=== PATIENT | female | born 1940 | race Caucasian/White ===

== ENCOUNTER 2016-10-18 21:24 | Observation (INO) | payer MEDICARE ==
[~2016-10-18] VITALS: Ht 165.1 cm; Wt 88.5 kg
--- NOTE | ~2016-10-18 | HEMODYNAMI ---
PATIENT:BEV JAMES MEDICAL RECORD: [id number] : 44 [id number] ADMISSION DATE: 10/18/16 Generatedon:10/19/201612:58 Patient name: BEV JAMES Patient #: [id number] SSN: : [id number] Date of study: 10/19/2016 Page: Of Hemodynamic Procedure Report Patient Data Patient Demographics Procedure consent was obtained First Name: BEV Gender: Female Last Name: JACOB : 1940 [facility] Initial: D Age: 76 year(s) Patient #: [id number] Race: Additional ID: [id number] Contact details Address: [place] [address] State: [place] City: [place] Zip code: [address] Past Medical History Allergies Allergen Reaction Date Comments Reported Aspirin 10/19/2016 Admission Admission Data Admission Date: 10/18/2016 Admission Time: 21:24 Room #: [facility] Procedure Procedure Types Cath Procedure Diagnostic Procedure [facility] w/Coronaries PCI Procedure Coronary Stent Initial Miscellaneous Procedures Moderate Sedation up to 30 minutes Procedure Description Procedure Date Procedure Date: 10/19/2016 Procedure Start Time: 12:36 Procedure End Time: 12:58 Procedure Staff Name Function Mike Bradford RT Scrub Yissel Boswell RN Nurse Lexy Encinas RT Monitor Kp Varela MD Performing Physician Procedure Data Cath Procedure Fluoroscopy Diagnostic fluoroscopy Total fluoroscopy Time: 3.5 time: 3.5 min min Diagnostic fluoroscopy Total fluoroscopy dose: 756 dose: 756 mGy mGy Contrast Material Contrast Material Type Amount (ml) Isovue 300 106 Entry Location Entry Primary Successful Side Size Upsize Upsize Entry Closure Succes sful Closure Location (Fr) 1 (Fr) 2 (Fr) Remarks Device Remarks Femoral Right 5 Fr 6 Fr Exoseal artery Short Estimated blood loss: 10 ml Diagnostic catheters Device Type Used For End Catheter Placement Cordis 5Fr JL 4.0 Left Coronary Catheter (MP) Angiography Cordis 5Fr 3DRC Catheter Right Coronary (MP) Angiography Cordis 5Fr Pigtail LV Angiography Catheter (MP) Procedure Complications No complications Procedure Medications Medication Administration Route Dosage Versed I.V. 1 mg Fentanyl I.V. 50 mcg Oxygen NC 3 l/min Lidocaine 2% added to field 20 Heparin Flush Bag added to field 2 bags (1000units/500ml NS) 0.9% NaCl I.V. 100 ml/hr Heparin Bolus I.V. 4000 units Integrilin (Bolus I.V. 7.9 ml 2mg/ml) Versed I.V. 1 mg Fentanyl I.V. 50 mcg Hemodynamics Rest Heart Rate: 70 (bpm) Pressure Samples Time Site Value (mmHg) Purpose Heart Use Rate(bpm) 12:42 LV 124/13,32 EDP 69 Gradients Valve Time Site Site Mean SEP/DFP Peak To Heart Use 1 2 (mmHg) (sec/min) Peak Rate (mmHg) (bpm) Aortic 12:43 LV AO 69 Snapshots Pre Cath Intra NCS Post Cath Vital Signs Time Heart Resp SPO2 NIBP (mmHg) Rhythm Pain Sedation Rate (ipm) (%) Status Level (bpm) 12:25:01 70 20 100 147/82(116) NSR 0 (11) 10(A) , No pain 12:29:27 67 17 92 130/69(109) NSR 0 (11) 10(A) , No pain 12:33:43 65 19 94 130/71(96) NSR 0 (11) 9(A) , No pain 12:38:03 64 23 95 116/62(101) NSR 0 (11) 9(A) , No pain 12:42:19 66 16 95 117/59(82) NSR 0 (11) 9(A) , No pain 12:46:35 65 14 95 118/65(84) NSR 0 (11) 9(A) , No pain 12:51:30 64 17 95 112/68(84) NSR 0 (11) 9(A) , No pain 12:55:44 62 21 90 108/65(76) NSR 0 (11) 10(A) , No pain Medications Time Medication Route Dose Verified Delivered Reason Notes Effectiveness by by 12:25:01 Oxygen NC 3 l/min Yissel Dey used for Elbert Elbert coding file clerk RN 12:25:21 Lidocaine 2% added 20ml Yissel Yissel used for to vial Elbert Elbert procedure field RN RN 12:25:35 Heparin Flush added 2 bags Yissel Yissel used for Bag to Elbert Elbert procedure (1000units/500ml field RN RN NS) 12:25:55 0.9% NaCl I.V. 100ml/hr Yissel Yissel used for Elbert Elbert coding file clerk RN 12:29:12 Versed I.V. 1 mg Yissel Yissel for Elbert Elbert sedation RN RN 12:29:18 Fentanyl I.V. 50 mcg Yissel Yissel for Elbert Elbert sedation RN RN 12:35:43 Versed I.V. 1 mg Yissel Yissel for Elbert Elbert sedation RN RN 12:35:54 Fentanyl I.V. 50 mcg Yissel Yissel for Elbert Elbert sedation RN RN 12:46:18 Heparin Bolus I.V. 4000 Kp Yissel Per verified units [facility] physician with dr. MD LANDAVERDE durham 12:46:35 Integrilin I.V. 7.9 ml Kp Yissel Per verified (Bolus 2mg/ml) [facility] physician with dr. MD LANDAVERDE durham, 2.1ml wasted Procedure Log Time Note 12:00:24 Lexy Counts RT(R) sent for patient. Start room use. 12:12:29 Time tracking: Regular hours 12:12:33 Plan of Care:Hemodynamics will remain stable., Cardiac rhythm will remain stable., Comfort level will be maintained., Respiratory function will remain adequate., Patient/ family verbilizes understanding of procedure., Procedure tolerated without complication., Recovers from procedure without complications.. 12:12:38 Patient received from Med II to CCL 2 Alert and oriented. Tansferred to table in Supine position. 12:12:39 Warm blankets applied, and jesus hugger turned on for patient comfort. 12:12:39 Correct patient and procedure confirmed by team. 12:12:41 Signed procedure consent form obtained from patient. 12:12:42 ECG and BP/O2 sat monitors applied to patient. 12:17:33 Full Disclosure recording started 12:22:42 Vital chart was started 12:22:48 Rhythm: sinus rhythm 12:22:55 H&P Date Dictated: 10/19/2016 Within 30 days and on chart.. 12:23:26 Pre-procedure instructions explained to patient. 12:23:26 Pre-op teaching completed and patient verbalized understanding. 12:23:28 Family in patients room. 12:23:35 Patient NPO since Midnight. 12:23:44 Patient allergic to Aspirin 12:23:48 Is the patient allergic to Iodine/contrast media? No. 12:23:49 Is patient on blood thinner?No 12:23:52 Patient diabetic? No. 12:23:57 Previous problem with sedation/anesthesia? No ? 12:23:57 Snore? Yes 12:23:59 Sleep apnea? No 12:24:00 Deviated septum? No 12:24:00 Opens mouth fully? Yes 12:24:01 Sticks out tongue? Yes 12:24:03 Airway obstruction? No ? 12:24:05 Dentures? Yes In 12:24:11 Pre procedure: right dorsailis pedis pulse 2+ Normal; easily identifiable; not easily obliterated 12:24:12 Patient pain scale 0/10 ?. 12:24:30 IV patent on arrival in right wrist with 0.9% NaCl at [facility]. 12:25:01 Oxygen 3 l/min NC was administered by Yissel Boswell RN; used for procedure; 12:25:21 Lidocaine 2% 20ml vial added to field was administered by Yissel Boswell RN; used for procedure; 12:25:35 Heparin Flush Bag (1000units/500ml NS) 2 bags added to field was administered by Yissel Boswell RN; used for procedure; 12:25:51 Lab results completed and on chart. 12:25:55 0.9% NaCl 100ml/hr I.V. was administered by Yissel Boswell RN; used for procedure; 12:25:56 Right groin area was prepped with chlora-prep and draped in sterile fashion 12:25:56 Alarms reviewed by R. N. 12:25:57 Sharps counted by scrub and verified by R.N. 12:25:59 Use device set Femoral Dx 12:26:00 Acist Syringe opened to sterile field. 12:26:00 Bag Decanter opened to sterile field. 12:26:01 Medline Cath Pack opened to sterile field. 12:26:01 Terumo 5Fr Wind Gap Sheath opened to sterile field. 12:26:02 St Fabricio 260cm J .035 wire opened to sterile field. 12:26:03 Acist Hand Control opened to sterile field. 12:26:03 Acist Manifold opened to sterile field. 12:26:04 Diagnostic Infinity 5Fr Multipack catheter opened to sterile field. 12:26:05 Tegaderm 4 x 4 opened to sterile field. 12::36 Baseline sample Acquired. 12::37 Final Timeout: patient, procedure, and site verified with staff and physician. All members of the team are in agreement. 12::39 Right groin site verified by team. 12::56 Physical assessment completed. ASA score P 2 - A patient with mild systemic disease as per Kp Varela MD. 12:28:59 Sedation plan: IV Moderate Sedation Versed, Fentanyl 12:29:12 Versed 1 mg I.V. was administered by Yissel Boswell RN; for sedation; 12:29:18 Fentanyl 50 mcg I.V. was administered by Yissel Boswell RN; for sedation; 12:34:04 Zero performed for pressure channel P1 12:35:43 Versed 1 mg I.V. was administered by Yissel Boswell RN; for sedation; 12:35:47 Procedure started. 12:35:54 Fentanyl 50 mcg I.V. was administered by Yissel Boswell RN; for sedation; 12:36:34 Local anesthetic to right femoral artery with Lidocaine 2% by Kp Varela MD.INITIAL ACCESS ONLY 12:36:48 A 5 Fr sheath was inserted into the Right Femoral artery 12:37:22 A Cordis 5Fr JL 4.0 Catheter (MP) was advanced over the wire and used for Left Coronary Angiography. 12:39:35 Catheter removed. 12:39:43 A Cordis 5Fr 3DRC Catheter (MP) was advanced over the wire and used for Right Coronary Angiography. 12:41:09 Catheter removed. 12:41:20 A Cordis 5Fr Pigtail Catheter (MP) was advanced over the wire and used for LV Angiography. 12:42:47 LV gram done using VALDIVIA 12:42:48 LV hemodynamics recorded. 12:42:52 Injector settings: Ml/sec: 10, Volume: 20, 12:43:03 EF : 40 % 12:43:26 Catheter removed. 12:43:54 Merit BasixCompak Inflation Kit opened to sterile field. 12:43:55 Terumo 6Fr Wind Gap Sheath opened to sterile field. 12:43:55 Villarreal [place] 300cm 0.014 guide wire opened to sterile field. 12:43:56 Medtronic Launcher 6Fr EBU 3.5 guide catheter opened to sterile field. 12:44:04 Sheath upsized to a 6 Fr Short. 12:45:48 6 Fr EBU 3.5 guide catheter was inserted over the wire 12:46:18 Heparin Bolus 4000 units I.V. was administered by Yissel Boswell RN; Per physician; verified with dr. flores 12:46:35 Integrilin (Bolus 2mg/ml) 7.9 ml I.V. was administered by Yissel Boswell RN; Per physician; verified with dr. flores, 2.1ml wasted 12:48:31 [place] wire advanced. 12:50:37 Inflation Number: 1 A Mcdowell OTW 3.0 x 15 stent was prepped and advanced across the Prox CX. The stent was deployed at 14 KAYLENE for 0:29 (min:sec). 12:51:05 Stent catheter was removed intact over wire. 12:51:05 Wire removed. 12:51:06 Guide catheter removed. 12:51:23 Cordis 6Fr Exoseal opened to sterile field. 12:51:35 Sheath removed intact; hemostasis achieved with Exoseal to the Right Femoral artery. 12:51:37 Procedure ended.(Physican Out) 12:53:03 Fluoroscopy time 03.50 minutes. 12:53:07 Fluoroscopy dose: 756 mGy 12:53:07 Flurop Dose total: 756 12:53:22 Contrast amount:Isovue 300 106ml. 12:53:23 Sharps counted by scrub and verified by R.N. 12:53:25 Insertion/operative site no bleeding no hematoma. 12:53:27 Post-op/insertion site Right Femoral artery dressed using a 4 x 4 and Tegaderm. 12:53:31 Post right femoral artery:stable, clean and dry 12:53:32 Post Procedure Pulses reassessed and unchanged 12:53:36 Post-procedure physical assessment completed. ASA score P 2 - A patient with mild systemic disease as per Kp Varela MD. 12:53:38 Post procedure rhythm: unchanged. 12:53:41 Estimated blood loss: 10 ml 12:53:42 Post procedure instruction explained to patient.Patient verbalizes understanding. 12:53:43 Patient needs reinforcement of post procedure teaching. 12:54:22 Procedure type changed to Cath procedure, Diagnostic procedure, LHC, LHC w/Coronaries, PCI procedure, Coronary Stent Initial, Miscellaneous Procedures, Moderate Sedation up to 30 minutes 12:54:28 Procedure Complication : No complications 12:54:31 See physician's report for complete and final results. 12:54:58 Procedure and supply charges have been captured, reviewed, submitted and are correct. 12:57:52 Vital chart was stopped 12:57:54 Report given to PCU. 12:58:05 Patient transfered to PCU with Bed. 12:58:12 Procedure ended. 12:58:12 Full Disclosure recording stopped 12:58:16 End room use (Document Last) Intervention Summary Intervention Notes Time ActionType Lesion and Equipment Action# Pressure Duration Attributes Used 12:50:37 Place stent Prox CX Mcdowell OTW 1 14 00:29 3.0 x 15 stent Device Usage Item Name Manufacture Quantity Catalog Hospital Part Current Minimal Lot# / Number Charge Number Stock Stock Serial# Code Acist Acist 1 [id number] 943501 283880 301107 20 Syringe Medical Systems Inc Bag Microtek 1 2002S 356286 36940 005605 5 Decanter Medical Inc. Medline Cardinal 1 [id number] 197031 18598 517379 5 Cath Pack Health Terumo 5Fr Terumo 1 [id number] 591865 633368 675862 [address] St Fabricio 1 644920 731539 668814 735598 30 260cm J .035 wire Acist Hand Acist 1 84433 094669 485090 485160 5 Control Medical Systems Inc Acist Acist 1 21627 765062 886970 327002 5 Manifold Medical Systems Inc Diagnostic Cardinal 1 [id number] 152499 83897 079265 30 Memolane 5Fr Multipack catheter Tegaderm 4 3M 1 1626W 469450 682959 304724 5 x 4 Cordis 5Fr Cardinal 1 943353 5 JL 4.0 Health Catheter (MP) Cordis 5Fr Cardinal 1 973309 5 3DRC Health Catheter (MP) Cordis 5Fr Cardinal 1 587818 5 Pigtail Health Catheter (MP) [facility] 1 [id number] 346220 183388 745170 15 Scout LabsixEcelles [employer] Medical Inflation Kit Terumo 6Fr Terumo 1 [id number] 781036 899571 533604 40 Wind Gap Sheath Villarreal Villarreal 1 [id number] 614995 646057 763396 1 [place] Vascular 300cm 0.014 guide wire Medtronic Medtronic 1 [id number] 300442 69594 316753 3 Launcher 6Fr EBU 3.5 guide catheter Mcdowell OTW Medtronic 1 [id number] 515748 062003 947281 5 [id number] 3.0 x 15 stent Cordis 6Fr Cardinal 1 EX600 614736 553523 600293 10 [facility] Signature Audit [place] Stage Time Signature Unsigned Intra-Procedure 10/19/2016 Lexy 12:58:29 PM Counts RT(R) Signatures Monitor : Lexy Signature : Counts RT Date : Time : [address] [facility] [place] [address]
--- NOTE | 2016-10-18 21:31 | NUR ---
ARRIVED TO FLOOR VIA STRETCHER FROM [facility]. ORIENTED TO UNIT, AND PLACED ON TELEMETRY 101 ST[address] RIGHT WRIST INFUSING HEPARIN @ 1000 UNITS PER HR. PAIN FREE AT THIS TIME. INSTRUCTED TO CALL NURSES STATION IF SHE NEEDS TO GET OUT OF BED BECAUSE OF SYNCOPAL EPISODE EARLIER TODAY. WILL CONTINUE TO MONITOR. SEE NURSE ASSESSMENT.
--- NOTE | 2016-10-18 21:55 | NUR ---
DR. OROZCO PAGED FOR FURTHER ORDERS, AWAITING CALL BACK.
[2016-10-18 23:45] VITALS: BP 193/76; BMI 32.5
[2016-10-19] VITALS: BP 115/57
[2016-10-19 04:00] VITALS: BP 127/72
--- NOTE | 2016-10-19 04:12 | NUR ---
77 CAF ON TELEMETRY
--- NOTE | 2016-10-19 04:52 | NUR ---
DANCE HALL HOST/HOSTESS AT BEDSIDE TO OBTAIN VITALS, CALL LIGHT IN REACH. WILL CONTINUE WITH PLAN OF CARE.
--- NOTE | 2016-10-19 06:11 | NUR ---
NO CHANGES FROM PREVIOUS ASSESSMENT, REMAINS FREE FROM PAIN AT THIS TIME. CALL LIGHT IN REACH.
[2016-10-19 06:15] LABS: HEMATOCRIT 36.3 % (36.0-48.0); HEMOGLOBIN 11.1 g/dL (12-16); MCHC 30.6 g/dL (31.0-37.0); MEAN PLATELET VOLUME 10.6 fL (7.4-10.4); PLATELET COUNT 236 10x3/uL (130-400); RBC 4.27 10x6/uL (4.00-5.40); RDW 16.7 % (11.5-14.5); WBC 7.7 10x3/uL (4.8-10.8)
--- NOTE | 2016-10-19 06:44 | NUR ---
CONSENTS OBTAINED CALL LIGHT IN REACH.
--- NOTE | 2016-10-19 07:57 | NUR ---
DR OROZCO HERE TO SEE PT PT AAOX4 DENIES ANY CHEST PAIN RESP UNLABORED NAD NOTED
[2016-10-19 08:07] VITALS: BP 113/59
[2016-10-19 08:21] LABS: BASOPHILS 0.1 % (0-2); EOSINOPHILS 1.1 % (0-7); IMMATURE GRANULOCYTES 0.1 % (0-5); NEUTROPHILS 61.7 % (40-80)
[2016-10-19 08:27] LABS: CALC OSMOLALITY 282 mosm/kg (275-300); CALCIUM 8.8 mg/dL (8.5-10.1); CARBON DIOXIDE 26.6 mmol/L (21.0-32.0); CHLORIDE - SERUM 104 mmol/L (98-107); CREATININE - SERUM 0.7 mg/dL (0.6-1.3); GLUCOSE 116 mg/dL (74-106); POTASSIUM - SERUM 4.3 mmol/L (3.5-5.1); SODIUM 141 mmol/L (136-145); UREA NITROGEN 14 mg/dL (7-18); eGFR NON AFRICAN AMERICAN 87 mL/min (90-120)
--- NOTE | 2016-10-19 11:58 | HP ---
PATIENT: BEV JAMES MEDICAL RECORD: [id number] ACCOUNT: [id number] LOCATION:[facility] : 42 ADMISSION DATE: 10/18/16 HISTORY AND PHYSICAL EXAMINATION HISTORY OF PRESENT ILLNESS: A 76-year-old lady actually with a remote history of atrial fibrillation, no recurrence for several years, stays quite active, easily takes care of her ADLs, on no chronic medications, was out actually weeding, had onset of chest pain, lightheaded, dizziness, near syncope, presented to the ER, was found to have atrial fibrillation with RVR, additionally was found to have markedly elevated cardiac enzymes. No acute ST-T changes, minor nonspecific ST changes, non-localizing. We are asked to see her concerning her cardiovascular status. PAST MEDICAL HISTORY: 1. Remote history of atrial fibrillation, no recurrence. 2. Osteoarthritis. ALLERGIES: ASPIRIN. MEDICATIONS: None currently. SOCIAL HISTORY: , takes care of her who is disabled as well as 4-year-old grandchild. Nonsmoker, nondrinker. REVIEW OF SYSTEMS: The patient reports easy bruising but reports no swollen glands. The patient reports no fever, no night sweats, no significant weight gain, no significant weight loss. No significant exercise tolerance. The patient reports no dry eyes, no irritation, no vision change. Patient reports no difficulty hearing and no ear pain. Patient reports no frequent nose bleeds or nose and sinus problems. Patient reports on arm pain on exertion. No shortness of breath while lying down. No history of heart murmur. Patient reports no cough, no wheezing or coughing up blood. Patient reports no abdominal pain, no vomiting. Normal appetite. No diarrhea and not vomiting blood. No nausea and no constipation. Patient reports no incontinence. No difficulty urinating. No hematuria. No increased frequency. Patient reports no muscle aches. No weakness, no arthralgias, no back pain. No swelling of the extremities. Patient reports no abnormal mole, no jaundice, no rashes. Reports no loss of consciousness. No weakness and no numbness. No seizures, dizziness, or headaches. The patient reports no depression, no sleep disturbance, feeling safe in a relationship and no alcohol abuse. Patient reports on fatigue. Reports no runny nose or sinus pressure. No itching, no hives, and no frequent sneezing. PHYSICAL EXAMINATION: GENERAL: Pleasant female who appears stated age. No acute distress. VITAL SIGNS: Blood pressure 122/72, pulse 75 and regular. HEENT: Normocephalic, atraumatic. NECK: No JVD or bruit. HEART: Regular, II/ systolic ejection murmur. LUNGS: Good air excursion. ABDOMEN: Soft, nontender. EXTREMITIES: Pulses 2+. There is no edema. NEUROLOGIC: Grossly intact. HISTORY AND PHYSICAL [id number] BEV JAMES DIAGNOSTIC DATA: ECG without acute change. IMPRESSION: Non-ST elevation myocardial infarction, atrial fibrillation. PLAN: We will plan for diagnostic angiography, intervention based on the above. TRANSINT:[id number] Voice Confirmation ID: [id number] DOCUMENT ID: [id number] BECCA OROZCO MD at 1158 CC: [id number] DICTATION DATE: 10/19/16 08 DINKEY BRAKEMAN: 10/19/16 0859 ADM IN [place] [address] [place] [address]
[2016-10-19 12:06] VITALS: BP 141/60
--- NOTE | 2016-10-19 12:11 | NUR ---
PT TO CASING WRINGER OPERATOR VIA BED AAOX4 RESP UNLABORED NAD NOTED
[2016-10-19 12:20] LABS: CHOL - HDL RATIO 4.1 ratio (2.3-4.1); LDL-HDL RATIO 2.7 ratio (1.5-3.5)
[2016-10-19 13:10] VITALS: Ht 165.1 cm; Wt 88.5 kg
[2016-10-19 14:44] VITALS: BP 118/57
[2016-10-19] MEDS ORDERED: PLAVIX75 MG PO (15:37)
[2016-10-19] MEDS ORDERED: METOPROLOL TART25 MG PO (15:37)
--- NOTE | 2016-10-19 17:00 | NUR ---
REVIEWED DISCHARGE INSTRUCTIONS WITH PT STATES UNDERSTANDING COPY GIVEN SALINE LOCK DCD TO RFA WITH IV CATHETER SITE FREE OF REDNESS OR EDEMA PT DISCHARGED IN STABLE CONDITION VIA W/C WITH ALL PERSONAL BELONGINGS
--- NOTE | 2016-10-19 18:30 | NUR ---
REVIEWED DISCHARGE INSTRUCTIONS WITH PT AND BOTH STATE UNDERSTANDING COPY GIVEN DCD LAC SALINE LOCK WITH IV CATHETER INTACT SITE FREE OF REDNESS OR EDEMA OCCLUSIVE DRSG APPLIED TO RT WRIST PT DISCHARGED HOME IN STABLE CONDITION WITH ALL PERSONAL BELONGINGS LEFT VIA W/C
--- NOTE | 2016-10-23 13:16 | OP ---
PATIENT NAME: BEV JAMES MEDICAL RECORD: [id number] :44 LOCATION:D[facility].2114 ADMISSION DATE:10/18/16 SURGEON: BECCA OROZCO MD OPERATION DATE: 10/18/16 DATE OF OPERATION: 10/19/2016 PROCEDURES: Left heart catheterization, selective coronary angiography, right femoral artery approach. CATHETERS: A 5-Taiwanese sheath, 5/4 left and right Rosa, 5/4 pig. The procedure was well tolerated. Sheath removed. ExoSeal device was placed. FINDINGS: Left ventriculography in 30-degree VALDIVIA view shows apical hypokinesis. Overall LV function, lower limits of normal, mildly reduced to 40%-45%. CORONARY ANATOMY: LEFT MAIN: Left main is free of disease. LAD: Free of disease in the diagonal system. CIRCUMFLEX: Has a hazy 80% stenosis in its mid portion of the infarct-related artery. RIGHT CORONARY ARTERY: Tortuous and free of disease. IMPRESSION: Single-vessel disease involving the circumflex. PLAN: Intervention of this vessel momentarily. DESCRIPTION OF PROCEDURE: A 5-Taiwanese sheath was changed for a 6-Taiwanese sheath. An XB LAD 3.5 guiding catheter provided excellent guide catheter support followed by 300 cm Whisper wire was placed across the site of the occluded circumflex down to the distal portion of this vessel. Stent deployed was a 3.0 x 15 mm Keith drug-eluting stent inflated up to 14 atmospheres for 45 seconds. Final angiography shows excellent resolution of an 80% stenosis, no significant residual. RADHA flow was 3 throughout the procedure. Integrilin was used in the case. Plavix was loaded previously. Sheath was closed with ExoSeal device. TRANSINT:[id number] Voice Confirmation ID: [id number] DOCUMENT ID: [id number] BECCA OROZCO MD at 1316 CC: [id number] DICTATION DATE: 10/19/16 1253 FORESTRY CREW CHIEF: 10/19/162035 DIS IN 10/19/16 [facility] [address] [place] [address]
== END 2016-10-19 18:14 | disposition home or self-care (01) ==
LOC: OBSVTIME 21:24 → D.M2 21:24
PROVIDERS: ADMIT Internal Medicine Interventional Cardiology
DX: I21.4 Non-ST elevation (NSTEMI) myocardial infarction (principal); I25.10 Atherosclerotic heart disease of native coronary artery without angina pectoris; I48.91 Unspecified atrial fibrillation

== ENCOUNTER 2016-12-17 15:58 | Inpatient (IN) | payer MEDICARE ==
[~2016-12-17] VITALS: Ht 165.1 cm; Wt 81.1 kg
[~2016-12-17 15:58] MED LIST: METOPROLOL TART25 MG PO; PLAVIX75 MG PO
[2016-12-17] MEDS ORDERED: CRESTOR5 MG PO (23:24)
[2016-12-17] MEDS ORDERED: CIPRO250 MG PO (23:24)
[2016-12-18 08:51] VITALS: Ht 165.1 cm; Wt 81.1 kg
[2016-12-20] MEDS ORDERED: ELIQUIS2.5 MG PO (12:21)
[2016-12-20 12:41] VITALS: BP 178/66
== END 2016-12-20 17:44 | disposition home or self-care (01) | DRG 65 ==
LOC: D.ER 15:58 → D.M2 21:26 → D.SDCHOLD 12-18 15:44 → D.M2 12-18 15:46
PROVIDERS: ADMIT Family Medicine
DX: I63.512 Cerebral infarction due to unspecified occlusion or stenosis of left middle cerebral artery (principal); I48.92 Unspecified atrial flutter; R47.02 Dysphasia; I25.10 Atherosclerotic heart disease of native coronary artery without angina pectoris; I48.91 Unspecified atrial fibrillation; I10 Essential (primary) hypertension; E78.5 Hyperlipidemia, unspecified; R40.2363 Coma scale, best motor response, obeys commands, at hospital admission; R40.2143 Coma scale, eyes open, spontaneous, at hospital admission; R40.2253 Coma scale, best verbal response, oriented, at hospital admission; I08.1 Rheumatic disorders of both mitral and tricuspid valves; Z79.01 Long term (current) use of anticoagulants; Z86.73 Personal history of transient ischemic attack (TIA), and cerebral infarction without residual deficits; Z87.891 Personal history of nicotine dependence

== ENCOUNTER 2017-10-15 14:48 | Inpatient (IN) | payer MEDICARE ==
[2017-10-15] VITALS (24 sets, daily range): BP systolic 53–141; BP diastolic 36–80; BMI 33.0
[~2017-10-15] VITALS: Ht 165.1 cm; Wt 104.4 kg
--- NOTE | ~2017-10-15 | OP ---
PATIENT NAME: BEV JAMES MEDICAL RECORD: [id number] :44 [facility] ADMISSION DATE:10/15/17 SURGEON: JULIA JONES MD DATE OF OPERATION: 10/15/2017 PROCEDURES: 1. PTCA stent RCA. 2. Left heart catheterization. 3. Selective coronary angiography. 4. Left ventriculogram. 5. DC cardioversion. INDICATION: Myocardial infarction, cardiogenic shock, coronary artery disease, cardiomyopathy, atrial fibrillation. PROCEDURE IN DETAIL: After informed consent was obtained and after a detailed explanation of risks, benefits as well as alternative therapies, the patient was emergently taken to the cardiac catheterization laboratory. The right femoral area was prepped and draped in normal sterile fashion. Right femoral artery was cannulated via modified Seldinger technique with placement of 6-Italian sheath. All catheters exchanged through this sheath. FINDINGS: The left ventriculogram was performed in a standard 30-degree VALDIVIA view, reveals apical akinesis, ejection fraction in the 35% range. SELECTIVE CORONARY ANGIOGRAPHY: 1. Left main is with no significant angiographic disease. 2. Left anterior descending has moderate irregularities, but no flow-limiting stenosis. 3. The left circumflex has a previously placed stent. There is no significant thrombus burden of the stent. No significant restenosis. No disease elsewise of the circumflex. 4. Right coronary has pressure damping with greater than 80% to 90% stenosis at the ostium. The right coronary does feed the apex as well. PTCA STENT OF THE RIGHT CORONARY ARTERY: I used was 3.5 x 12 mm Integrity. Result was 0% residual stenosis. OVERALL IMPRESSION: Successful PTCA stent of the right coronary artery going from 80% to 90% initial stenosis to 0% residual stenosis. Most likely, the acute myocardial infarction was secondary to acute thrombus on the previous stent in the left circumflex; however, no thrombus burden was seen at this time and there was RADHA 3 flow. The patient did receive thrombolytic therapy. The apex was fed by the RCA as well, that is why this underwent a PTCA stent for recovery of apical wall motion and the cardiomyopathy. Would center her medical management on treatment of continued anticoagulation in the form of antiplatelet with Plavix. THE PATIENT IS ALLERGIC TO ASPIRIN. In the past, she has had no problems with Plavix and no problems with thrombosis on Plavix. We will use Integrilin in the acute setting changing over to Plavix when she has an NG tube. TRANSINT:[id number] Voice Confirmation ID: [id number] DOCUMENT ID: [id number] OPERATIVE REPORT [id number] BEV JAMES JEFFREY MD at 1230 CC: [id number] DICTATION DATE: 10/15/17 165 STEM DRYER MAINTAINER: 10/15/17 1752 ADM IN [place] [id number] [place] [id number]
--- NOTE | ~2017-10-15 | MORECARE ---
CASE MANAGEMENT DISCHARGE SUMMARY PATIENT: BEV JAMES UNIT: [id number] ADM DATE: 10/15/17 AGE: 77 : 42 SEX: F ROOM/BED: D.2215 AUTHOR: CASE, CHAIN DYER PHYSICIAN: REFERRING PHYSICIAN: JLUIA JONES MD DATE OF SERVICE: 10/15/17 Discharge Plan Patient Name: BEV JAMES Facility: [facility]:[place] : 1940 Planned Disposition: Hospice Home Anticipated Discharge Date: Discharge Date: 10/29/2017 Expected LOS: 0 Initial Reviewer: [email or web address] Initial Review Date: 10/15/2017 Generated: 10/31/17 11:05 am Comments DCP- Discharge Planning Updated by [email or web address]: Kristin Murphy on 10/29/17 8:[address] Patient to be discharged home to hospice today vai ems, family at bedside. [facility] called. CM will continue to follow and assist with dc planning as needed DCP- Discharge Planning Updated by [email or web address]: Kristin Murphy on 10/28/17 3:[address] CLINICAL INFORMATION SENT TO [facility] FAX # [phone] DCP- Discharge Planning Updated by [email or web address]: Susie Serrano on 10/28/17 3:[address] CM called [facility] in [place] and spoke with Lizabeth. Lizabeth is going to speak with the family about home hospice and see if the family wants them to come to hospital to talk to them. Lizabeth states she will get back with CM or the Nurse about the patients decision. [facility] phone number is [phone]. CM will continue to follow and assist with dc planning/needs. DCP- Discharge Planning Updated by [email or web address]: Kristin Murphy on 10/28/17 1:[address] Patient Name: BEV JAMES Admission Status: Elective Accout number: [id number] Admission Date: 10-15-2017 : 1940 Admission Diagnosis:ACUTE MYOCARDIAL INFARCTION, UNSPECIFIED Attending: VERONICA JONES Current LOS: 13 Anticipated DC Date: Planned Disposition: Hospice Home Primary Insurance: [facility] PFFS Discharge Planning Comments: CM met with patient's son's Sera and Jazmin to discuss discharge planning needs. Patient is unresponsive at this time. Son's stated that prior to the hospitalization she was living at home where she was independent with her care. She did not use any DME. The family would like to set up hospice. I have given them brochures on the different hospice companies. They initially want the patient to be inpatient hospice at [facility], but [place] can not take hospice there. I spoke with the family and they are talking about home hospice. The family will call me when they have made a decision. CM will continue to follow and assist with dc planning as needed. Occupational Therapy Assistant: Kristin Murphy DCP- Discharge Planning Updated by [email or web address]: Veronica Grey on 10/25/17 5:[address] CM attempted to speak with patient / family regarding discharge planning. Patient still on vent and no family in room. CM will continue to follow and assist as needed with discharge planning. DCP- Discharge Planning Updated by [id number]: Veronica Grey on 10/22/17 2:[address] CM attempted to speak with patient about discharge planning at this time she sedated and on vent. CM attempted to call daughter Lizeth [phone] (not a working number) CM will continue to follow and assist patients needs for discharge planning. DCPIA - Discharge Planning Initial Assessment Updated by [email or web address]: Kristin Murphy on 10/28/17 2:27 pm * Is the patient Alert and Oriented? Yes * PCP [facility] * Pharmacy [facility] * Preadmission Environment Home with Family * ADLs Independent * Equipment None * List name and contact numbers for known caregivers / representatives who currently or will assist patient after discharge: SERA (SON) LIZETH (DAUGHTER) JAZMIN (SON) * Verbal permission to speak to the caregivers and representatives has been obtained from the patient. Yes * Community resources currently utilized None * Additional services required to return to the preadmission environment? Yes * Can the patient safely return to the preadmission environment? Yes * Has this patient been hospitalized within the prior 30 days at any hospital? No Patient Name: BEV JAMES Page [id number] All edits/amendments must be made on the electronic document DICTATION DATE: 10/31/17 1004 VIDEO PHOTOGRAPHER: 10/31/17 1004 RPT#: [id number] DC DATE:10/29/17 STATUS: DIS IN [facility] [address] [place] [address] END OF REPORT
--- NOTE | ~2017-10-15 | DS ---
PATIENT:BEV DOWNING :44 MEDICAL RECORD: [id number] DISCHARGE SUMMARY ADMISSION DATE: 10/15/17 DISCHARGE DATE: 10/29/17 DIAGNOSES: 1. Acute inferior myocardial infarction. 2. PTCA and stent, RCA on this admission. 3. Respiratory failure. 4. Pneumonia. 5. Coronary artery disease. 6. Cardiomyopathy. 7. Congestive heart failure, chronic systolic dysfunction. Ms. Downing presents with an acute inferior myocardial infarction to [facility]. She underwent thrombolytic therapy, did not show reperfusion. She underwent cardiac catheterization and successful PTCA and stent of the RCA at that time. She was intubated, on ventilatory support. She developed pneumonia, continued her respiratory failure. Ejection fraction was in the 35% range secondary to the myocardial infarction and had mild congestive heart failure that was controlled with diuretics. She was made a DNR, extubated, and discharged to hospice care. TRANSINT:[id number] Voice Confirmation ID: [id number] DOCUMENT ID: [id number] JULIA JONES MD at 1729 CC: [id number] DICTATION DATE: 12/16/17 1557 PHOTO TECH: 12/16/17 1749 DIS IN 10/29/17 [place] [address]
--- NOTE | ~2017-10-15 | HP ---
PATIENT: BEV DOWNING MEDICAL RECORD: [id number] ACCOUNT: [id number] LOCATION:[facility] D.2306 : [birth year] ADMISSION DATE: 10/15/17 HISTORY AND PHYSICAL EXAMINATION DIAGNOSES: 1. Cardiogenic shock. 2. Acute anterolateral myocardial infarction. 3. Coronary artery disease. HISTORY OF PRESENT ILLNESS: Ms. Downing has no previous cardiac history. She presented to [facility] with chest pain and just feeling bad. This all started just today. Initially, she had nonspecific ST-T changes on her EKG. She began feeling much worse, went into respiratory distress. Her EKG was more compatible with an acute anterolateral myocardial infarction. Her respiratory distress progressed to the point of needing intubation. She is now on dopamine at 15 with the systolic blood pressure in the 70s, intubated and sedated. Her EKG still has ST elevation in the lateral leads. PHYSICAL EXAMINATION: GENERAL APPEARANCE: Well-nourished, well-developed, appears stated age. Level of distress, comfortable. PSYCHIATRIC: Mental status, alert, normal affect. Orientation, oriented to time, place and person. EYES: Lids and conjunctiva, noninjected. No discharge, no pallor. ENT: Lips, teeth, gums, normal dentition. Oropharynx, no cyanosis, no pallor. NECK: Carotid arteries, bilateral normal upstroke, no bruits, no thrills. JUGULAR VEINS: No jugular venous pressure or distention. CERVICAL LYMPH NODES: Nontender, nonenlarged. THYROID: Not enlarged. Nontender. No nodules. LUNGS: Respiratory effort, unlabored. CHEST: Normal curvature. No thoracic deformity. No chest wall tenderness. Percussion, resonant. Auscultation, clear. No wheezes, no rales, no rhonchi. CARDIOVASCULAR: Precordial exam, nondisplaced. No heaves or pericardial thrills. Rate and rhythm, regular. Heart sounds, normal S1, normal S2. No S3, no gallop, no rub. Systolic murmur, not heard. Diastolic murmur, not heard. EXTREMITIES: No cyanosis, no edema. Peripheral pulses, full and equal in all extremities, except as noted. No bruits appreciated. ABDOMEN: Soft, nondistended. Normal aorta. No bruit. Nontender. No masses. Liver, nontender, no hepatomegaly. Spleen, nontender, no splenomegaly. MUSCULOSKELETAL: No joint tenderness. No joint swelling. No erythema. NEUROLOGICAL: Normal gait, normal strength, normal tone. SKIN: Warm and dry. OVERALL IMPRESSION: Acute anterolateral myocardial infarction with cardiogenic shock. At this time, we will take her for acute coronary intervention and that would be salvage and life saving and possible balloon pump intervention. TRANSINT:[id number] Voice Confirmation ID: [id number] DOCUMENT ID: [id number] HISTORY AND PHYSICAL [id number] TICKNERBVE JEFFREY MD at 1230 CC: [id number] DICTATION DATE: 10/15/17 1546 HOME CARE ASSISTANT: 10/15/17 1554 ADM IN [place] [id number] [place] [address]
--- NOTE | ~2017-10-15 | HEMODYNAMI ---
PATIENT:BEV JAMES MEDICAL RECORD: [id number] : 44 [id number] ADMISSION DATE: 10/15/17 Generatedon:10/15/201717:05 Patient name: BEV JAMES Patient #: [id number] SSN: : 1940 Date of study: 10/15/2017 Page: Of Hemodynamic Procedure Report Patient Data Patient Demographics Procedure consent was obtained First Name: BEV Gender: Female Last Name: JACOB : 1940 [facility] Initial: D Age: 77 year(s) Patient #: [id number] Race: Additional ID: [id number] Contact details Address: [place] [address] State: [place] City: [place] Zip code: [address] Past Medical History Allergies Allergen Reaction Date Comments Reported Aspirin 10/19/2016 Admission Admission Data Admission Date: 10/15/2017 Admission Time: 15:22 Admit Source: Other Room #: D.2306 Procedure Procedure Types Cath Procedure Diagnostic Procedure LHC LHC w/Coronaries Cardioversion External Sedation Charges Moderate Sedation up to 15 minutes PCI Procedure AMI/SVG/KNITTING MACHINE MECHANIC PTCA or Stent AMI-BMS/PURVI Initial Procedure Description Procedure Date Procedure Date: 10/15/2017 Procedure Start Time: 16:26 Procedure End Time: 16:49 Procedure Staff Name Function Oscar Staples MD Performing Physician Bairon Marley RN Nurse Mike Bradford RT Monitor Lexy Encinas RT Scrub Procedure Data Cath Procedure Fluoroscopy Diagnostic fluoroscopy Total fluoroscopy Time: 3 time: 3 min min Diagnostic fluoroscopy Total fluoroscopy dose: 864 dose: 864 mGy mGy Contrast Material Contrast Material Type Amount (ml) Isovue 370 74 Entry Location Entry Primary Successful Side Size Upsize Upsize Entry Closure Succes sful Closure Location (Fr) 1 (Fr) 2 (Fr) Remarks Device Remarks Femoral Right 6 Fr Exoseal artery Short Estimated blood loss: 10 ml Diagnostic catheters Device Type Used For End Catheter Placement MULTIPACK Pigtail 5 Fr Procedure catheter MULTIPACK JL 4.0 5Fr Procedure catheter MULTIPACK 3DRC 5Fr Procedure catheter Procedure Complications No complications Procedure Medications Medication Administration Route Dosage Dopamine I.V. drip 7.5 mcg/kg/min (400mg/250ml D5W) Oxygen Heparin Flush Bag added to field 3 bags (1000units/500ml NS) 0.9% NaCl I.V. 100 ml/hr Versed I.V. 1 mg Lopressor I.V. 5 mg Integrilin (Bolus I.V. 8.5 ml 2mg/ml) Heparin Bolus I.V. 5000 units Integrilin (Bolus wasted 1.5 ml 2mg/ml) Fentanyl I.V. 100 mcg Integrilin Drip I.V. drip 14.4 ml/hr (75mg/100ml) Hemodynamics Rest Heart Rate: 156 (bpm) Pressure Samples Time Site Value (mmHg) Purpose Heart Use Rate(bpm) 16:29 LV 106/51,45 Snapshot 146 Snapshots Pre Cath Intra NCS Post Cath Vital Signs Time Heart Resp SPO2 etCO2 NIBP (mmHg) Rhythm Pain Sedation Rate (ipm) (%) (mmHg) Status Level (bpm) 16:16:26 149 16 0 135/55(109) A-Fib 0 (11) 3(A) , No pain 16:21:17 134 16 99 0 125/79(92) A-Fib 0 (11) 3(A) , No pain 16:26:04 141 16 0 121/90(113) A-Fib 0 (11) 3(A) , No pain 16:31:33 128 16 96 0 123/92(109) A-Fib 0 (11) 3(A) , No pain 16:36:18 133 15 97 0 118/83(101) A-Fib 0 (11) 3(A) , No pain 16:41:03 99 15 97 0 133/84(107) A-Fib 0 (11) 3(A) , No pain 16:45:54 96 15 97 0 125/80(109) A-Fib 0 (11) 3(A) , No pain Medications Time Medication Route Dose Verified Delivered Reason N otes Effectiveness by by 16:19:20 Dopamine I.V. 7.5 Oscar Waddell Per physician (400mg/250ml drip mcg/kg/min Jhoan Marley RN D5W) 16:20:00 Oxygen per Oscar Waddell Per physician vent Jhoan Marley RN per resp 16:20:16 Heparin Flush added 3 bags Oscar Waddell used for Bag to Jhoan Marley RN procedure (1000units/500ml field NS) 16:20:27 0.9% NaCl I.V. 100 ml/hr Oscar Waddell Per physician Jhoan Marley RN 16:25:57 Versed I.V. 1 mg Oscar Waddell for sedation Jhoan Marley RN 16:26:05 Lopressor I.V. 5 mg Oscar Waddell Per physician Jhoan Marley RN 16:33:15 Integrilin I.V. 8.5 ml Oscar Waddell for (Bolus 2mg/ml) Jhoan Marley RN antiplatelet therapy 16:36:14 Heparin Bolus I.V. 5000 units Oscar Waddell for Jhoan Marley RN anticoagulation 16:44:32 Integrilin wasted 1.5 ml Oscar Waddell for (Bolus 2mg/ml) Jhoan Marley RN antiplatelet therapy 16:57:59 Fentanyl I.V. 100 mcg Oscar Waddell for sedation Jhoan Marley RN 17:02:03 Integrilin Drip I.V. 14.4 ml/hr Oscar Waddell for (75mg/100ml) drip Jhoan Marley RN antiplatelet therapy Procedure Log Time Note 15:45:16 Bairon Marley RN sent for patient. Start room use. 15:54:50 Informed consent obtained and on chart 15:54:57 Admit Source: Other 15:55:15 Diagnostic Cath status Urgent 15:55:22 Time tracking: Regular hours (M-F 7:00 - 5:00) 15:55:25 Plan of Care:Hemodynamics will remain stable., Cardiac rhythm will remain stable., Comfort level will be maintained., Respiratory function will remain adequate., Patient/ family verbilizes understanding of procedure., Procedure tolerated without complication., Recovers from procedure without complications.. 16:08:37 Patient received from ICU to CCL 1 Alert and oriented. Tansferred to table in Supine position. 16:08:38 Warm blankets applied, and jesus hugger turned on for patient comfort. 16:08:38 Correct patient and procedure confirmed by team. 16:08:39 ECG and BP/O2 sat monitors applied to patient. 16:08:40 Pre-procedure instructions explained to patient. 16:15:18 Vital chart was started 16:16:02 Family unavailable. 16:17:02 Previous problem with sedation/anesthesia? Unknown ? 16:17:03 Snore? Unknown 16:17:04 Sleep apnea? Unknown 16:17:05 Deviated septum? Unknown 16:17:07 Opens mouth fully? Unknown 16:17:12 Sticks out tongue? Unknown 16:17:14 Airway obstruction? Unknown ? 16:17:16 Dentures? Unknown ? 16:17:42 IV patent on arrival in right hand with 0.9% NaCl at [facility]. 16:17:46 Bilateral groins area was prepped with chlora-prep and draped in sterile fashion 16:17:47 Alarms reviewed by R. N. 16:17:47 Sharps counted by scrub and verified by R.N. 16:17:49 Use device set Femoral Dx 16:17:50 ACIST Syringe (69441) opened to sterile field. 16:17:50 Bag Decanter (2002S) opened to sterile field. 16:17:51 Medline Cath Pack ([id number]) opened to sterile field. 16:17:52 ACIST Hand Control (24838) opened to sterile field. 16:17:52 ACIST Manifold (32536) opened to sterile field. 16:17:53 Tegaderm 4 x 4 (1626W) opened to sterile field. 16:17:54 DIAGNOSTIC WIRE .035 260cm J wire (400804) opened to sterile field. 16:17:55 DIAGNOSTIC Multipack 5Fr catheter set ([id number]) opened to sterile field. 16:18:00 Baseline sample Acquired. 16:18:11 Rhythm: w/ ST elevation, atrial fibrillation 16:18:12 Full Disclosure recording started 16:18:16 Physician arrived 16:18:16 --------ALL STOP TIME OUT------ 16:18:16 Final Timeout: patient, procedure, and site verified with staff and physician. All members of the team are in agreement. 16:18:18 Bilateral groins site verified by team. 16:18:26 Physical assessment completed. ASA score P 4 - A patient with severe systemic disease that is a constant threat to life as per Oscar Staples MD. 16:18:31 Sedation plan: IV Moderate Sedation Medication:Versed, Fentanyl 16:19:20 Dopamine (400mg/250ml D5W) 7.5 mcg/kg/min I.V. drip was administered by Bairon Marley RN; Per physician; 16:20:00 Oxygen per vent per resp was administered by Bairon Marley RN; Per physician; 16:20:16 Heparin Flush Bag (1000units/500ml NS) 3 bags added to field was administered by Bairon Marley RN; used for procedure; 16:20:27 0.9% NaCl 100 ml/hr I.V. was administered by Bairon Marley RN; Per physician; 16:25:34 SHEATH Prelude 6Fr 0.035 (OUE-3Z-72-035) opened to sterile field. 16:25:57 Versed 1 mg I.V. was administered by Bairon Marley RN; for sedation; 16:26:05 Lopressor 5 mg I.V. was administered by Bairon Marley RN; Per physician; 16:26:33 Procedure started. 16:26:37 Local anesthetic to right femoral artery with Lidocaine 2% by Oscar Staples MD.INITIAL ACCESS ONLY 16:28:11 A 6 Fr Short sheath was inserted into the Right Femoral artery 16:28:37 A MULTIPACK Pigtail 5 Fr catheter was advanced over the wire and used for Procedure. 16:29:26 LV gram done using VALDIVIA 16::28 Injector settings: Ml/sec: 10, Volume: 20, 16:29:40 EF : 35 % 16:29:42 Catheter removed. 16:29:48 A MULTIPACK JL 4.0 5Fr catheter was advanced over the wire and used for Procedure. 16:30:15 CHOICE PT Extra Support 182cm wire ([id number]) opened to sterile field. 16:30:34 INFLATOR Merit BasixCompak (CC5895) opened to sterile field. 16:30:53 LCA angiography performed. 16::49 Catheter exchanged over wire. 16::53 A MULTIPACK 3DRC 5Fr catheter was advanced over the wire and used for Procedure. 16:32:17 RCA angiography performed. 16:33:15 Integrilin (Bolus 2mg/ml) 8.5 ml I.V. was administered by Bairon Marley RN; for antiplatelet therapy; 16:34:21 GUIDE 6FR 3DRC SH catheter ([id number]) opened to sterile field. 16:34:28 Catheter removed. 16:34:41 6 Fr 3DRC SH guide catheter was inserted over the wire 16:35:45 WHISPER 300cm guide wire ([id number]) opened to sterile field. 16:35:56 whisper wire advanced. 16:36:14 Heparin Bolus 5000 units I.V. was administered by Bairon Marley RN; for anticoagulation; 16:37:02 Wire advanced across lesion. 16:37:35 Place stent Inflation Number: 1 A INTEGRITY OTW 3.5 X 12 stent ([id number]) was prepped and advanced across the Prox RCA. The stent was deployed at 13 KAYLENE for 0:10 (min:sec). 16:37:44 Inflation number: 2 The stent balloon was then re-inflated across the Prox RCA to 17 KAYLENE for 0:10 (min:sec). 16:37:50 Stent catheter was removed intact over wire. 16:37:55 Wire removed. 16:38:00 Guide catheter removed. 16:38:25 Quick combo pads placed on patients chest and back. 16:38:31 Quick Combo opened to sterile field. 16:38:44 Defibrillator synced and charged to 275 Joules. 16:39:05 Shock delivered. 16:39:34 Patient cardioverted to sinus rhythm . 16:40:47 EXOSEAL 6Fr (EX600) opened to sterile field. 16:41:00 Sheath removed intact; hemostasis achieved with Exoseal to the Right Femoral artery. 16:41:34 Procedure ended.(Physican Out) 16:42:39 Fluoroscopy time 03.00 minutes. 16:43:07 Flurop Dose total: 864 16:43:07 Fluoroscopy dose: 864 mGy 16:43:12 Contrast amount:Isovue 370 74ml. 16:43:13 Sharps counted by scrub and verified by R.N. 16:44:32 Integrilin (Bolus 2mg/ml) 1.5 ml wasted was administered by Bairon Marley RN; for antiplatelet therapy; 16:44:52 Insertion/operative site no bleeding no hematoma. 16:44:54 Post-op/insertion site Right Femoral artery dressed using a 4 x 4 and Tegaderm. 16:44:57 Post right femoral artery:stable, soft, clean and dry 16:44:59 Post Procedure Pulses reassessed and unchanged 16:45:02 Post-procedure physical assessment completed. ASA score P 4 - A patient with severe systemic disease that is a constant threat to life as per Oscar Staples MD. 16:45:20 Post procedure rhythm: sinus tachycardia 16:45:23 Estimated blood loss: 10 ml 16:45:38 Patient needs reinforcement of post procedure teaching. 16:46:02 Procedure type changed to Cath procedure, Diagnostic procedure, LHC, LHC w/Coronaries, Cardioversion External, Sedation Charges, Moderate Sedation up to 15 minutes, PCI procedure, AMI/SVG/KNITTING MACHINE MECHANIC PTCA or Stent, AMI-BMS/PURVI Initial 16:49:24 Procedure and supply charges have been captured, reviewed, submitted and are correct. 16:49:26 Procedure Complication : No complications 16:49:30 Vital chart was stopped 16:49:31 See physician's report for complete and final results. 16:49:33 Report given to ICU. 16:49:35 Patient transfered to ICU with Stretcher. 16:49:37 Procedure ended. 16:49:37 Full Disclosure recording stopped 16:49:51 End room use (Document Last) 16:57:59 Fentanyl 100 mcg I.V. was administered by Bairon Marley RN; for sedation; 17:02:03 Integrilin Drip (75mg/100ml) 14.4 ml/hr I.V. drip was administered by Bairon Marley RN; for antiplatelet therapy; 17:03:09 IV CATHETER 20g opened to sterile field. 17:03:25 IV started by Bairon Marley RN inRight upper arm with a 20 gauge IV catheter with 0.9% NaCl at KVO. Intervention Summary Intervention Notes Time ActionType Lesion and Equipment Action# Pressure Duration Attributes Used 16:37:35 Place stent Prox RCA INTEGRITY 1 13 00:10 OTW 3.5 X 12 stent ([id number]) 16:37:44 Reinflate Prox RCA INTEGRITY 2 17 00:10 stent OTW 3.5 X balloon 12 stent ([id number]) Device Usage Item Name Manufacture Quantity Catalog Number Hospital Part Current Minimal Lot# / Charge Number Stock Stock Serial# Code ACIST Syringe Acist 1 24627 056731 682437 [id number] 20 (31742) Medical Systems Inc Bag Decanter Microtek 1 2001S 149538 88192 894684 5 (2001S) Medical Inc. Medline Cath Cardinal 1 [id number] 997559 59163 317674 5 Pack Health ([id number]) ACIST Hand Acist 1 42447 479529 772326 167909 5 Control (31401) Medical Systems Inc ACIST Manifold Acist 1 23390 439770 985364 552503 5 (32730) Medical Systems Inc Tegaderm 4 x 4 3M 1 1626W 623989 252390 716655 5 (1626W) DIAGNOSTIC WIRE St Fabricio 1 933024 127328 376550 254465 30 .035 260cm J wire (854785) DIAGNOSTIC Cardinal 1 UL3372 604708 77664 763678 30 Multipack 5Fr Health catheter set (MQ7310) MULTIPACK Cardinal 1 658772 5 Pigtail 5 Fr Health catheter MULTIPACK JL Cardinal 1 304016 5 4.0 5Fr Health catheter CHOICE PT Extra [place] 1 [id number] 431289 134521 455969 5 Support 182cm Scientific wire ([id number]) SHEATH Prelude Merit 1 [id number]-[id number] 321332 6842141 280117 5 6Fr 0.035 Medical (VHY-1V-38-035) INFLATOR Merit Merit 1 GZ9076 884643 308483 073699 15 [facility] (HP5618) MULTIPACK 3DRC Cardinal 1 194969 5 5Fr catheter Health GUIDE 6FR 3DRC Medtronic 1 [id number] 976742 415203 154477 1 SH catheter ([id number]) WHISPER 300cm Villarreal 1 [id number] 056451 950682 444781 5 guide wire Vascular (4071334RE) INTEGRITY OTW Medtronic 1 [id number] 542962 086995 6 [id number] 3.5 X 12 stent ([id number]) Quick Zuujito Samplify Systems 1 [id number] 577649 878709 452173 5 EXOSEAL 6Fr Cardinal 1 EX600 946470 431590 120078 10 (EX600) Health IV CATHETER 20g B. Lorenzo 1 [id number] 712019 650618 376866 5 Signature Audit [place] Stage Time Signature Unsigned Intra-Procedure 10/15/2017 Mike Bradford 5:05:00 PM RT(R) Signatures Monitor : Mike Brafdord RT Signature : Date : Time : [address] [place] [address]
[~2017-10-15 14:48] MED LIST changes: +CIPRO250 MG PO; +CRESTOR5 MG PO; +ELIQUIS2.5 MG PO
[2017-10-15 20:12] LABS: BASOPHILS 0.1 % (0-2); EOSINOPHILS 0.1 % (0-7); HEMATOCRIT 29.1 % (36.0-48.0); IMMATURE GRANULOCYTES 0.3 % (0-5); LYMPHOCYTES 9.7 % (15-50); MCH 26.7 pg (26.0-34.0); MCHC 24.7 g/dL (31.0-37.0); MCV 107.8 fL (80.0-100.0); MEAN PLATELET VOLUME 10.6 fL (7.4-10.4); NEUTROPHILS 81.8 % (40-80); RDW 17.8 % (11.5-14.5); WBC 9.9 10x3/uL (4.8-10.8)
[2017-10-15 20:14] LABS: HEMOGLOBIN 7.2 g/dL (12-16); PLATELET COUNT 164 10x3/uL (130-400)
[2017-10-16] VITALS (44 sets, daily range): BP systolic 74–137; BP diastolic 35–92; BMI 32.9
[2017-10-16 05:35] LABS: BASOPHILS 0 % (0-2); EOSINOPHILS 0 % (0-7); IMMATURE GRANULOCYTES 0.2 % (0-5); LYMPHOCYTES 15.1 % (15-50); MCH 27.3 pg (26.0-34.0); MCHC 32.5 g/dL (31.0-37.0); MEAN PLATELET VOLUME 10.1 fL (7.4-10.4); MONOCYTES 11.1 % (2-11); NEUTROPHILS 73.6 % (40-80); PLATELET COUNT 182 10x3/uL (130-400); RDW 15.7 % (11.5-14.5)
[2017-10-16 05:55] LABS: HEMATOCRIT 38.5 % (36.0-48.0); HEMOGLOBIN 12.5 g/dL (12-16); MCV 84.1 fL (80.0-100.0); RBC 4.58 10x6/uL (4.00-5.40); WBC 12.5 10x3/uL (4.8-10.8)
[2017-10-16 06:12] LABS: ALBUMIN 2.6 g/dL (3.4-5.0); ALKALINE PHOSPHATASE 80 U/L (46-116); ALT (SGPT) 37 U/L (10-68); BILIRUBIN - TOTAL 1.13 mg/dL (0.2-1.3); CALC OSMOLALITY 287 mosm/kg (275-300); CALCIUM 7.1 mg/dL (8.5-10.1); CARBON DIOXIDE 23.4 mmol/L (21.0-32.0); CHLORIDE - SERUM 108 mmol/L (98-107); CREATININE - SERUM 0.7 mg/dL (0.6-1.3); GLUCOSE 144 mg/dL (74-106); MAGNESIUM - SERUM 1.5 mg/dL (1.8-2.4); PHOSPHOROUS 3.2 mg/dL (2.5-4.9); POTASSIUM - SERUM 3.9 mmol/L (3.5-5.1); PRO BNP 4352 pg/mL (0-450); PROTEIN - SERUM 6.5 g/dL (6.4-8.2); SODIUM 142 mmol/L (136-145); UREA NITROGEN 18 mg/dL (7-18); eGFR NON AFRICAN AMERICAN 86 mL/min (90-120)
[2017-10-16 06:22] LABS: TROPONIN-I 30.676 ng/mL (0.000-0.060)
[2017-10-17] VITALS (38 sets, daily range): BP systolic 86–136; BP diastolic 27–105
[2017-10-17 04:26] LABS: BASOPHILS 0.1 % (0-2); EOSINOPHILS 0.5 % (0-7); IMMATURE GRANULOCYTES 0.2 % (0-5); LYMPHOCYTES 12.5 % (15-50); MCH 27.2 pg (26.0-34.0); MCHC 32.3 g/dL (31.0-37.0); MCV 84.2 fL (80.0-100.0); MEAN PLATELET VOLUME 10.3 fL (7.4-10.4); MONOCYTES 11.2 % (2-11); NEUTROPHILS 75.5 % (40-80); PLATELET COUNT 155 10x3/uL (130-400); RBC 3.68 10x6/uL (4.00-5.40); RDW 16.5 % (11.5-14.5); WBC 9.4 10x3/uL (4.8-10.8)
[2017-10-17 04:45] LABS: CALC OSMOLALITY 285 mosm/kg (275-300); CALCIUM 7.5 mg/dL (8.5-10.1); CARBON DIOXIDE 28.5 mmol/L (21.0-32.0); CHLORIDE - SERUM 108 mmol/L (98-107); CREATININE - SERUM 0.7 mg/dL (0.6-1.3); GLUCOSE 130 mg/dL (74-106); MAGNESIUM - SERUM 1.6 mg/dL (1.8-2.4); POTASSIUM - SERUM 3.4 mmol/L (3.5-5.1); SODIUM 143 mmol/L (136-145); eGFR NON AFRICAN AMERICAN 86 mL/min (90-120)
[2017-10-17 05:10] LABS: UREA NITROGEN 11 mg/dL (7-18)
[2017-10-18] VITALS (42 sets, daily range): BP systolic 90–129; BP diastolic 35–86
[2017-10-18 05:14] LABS: BASOPHILS 0.2 % (0-2); EOSINOPHILS 1.2 % (0-7); HEMATOCRIT 29.4 % (36.0-48.0); HEMOGLOBIN 9.4 g/dL (12-16); IMMATURE GRANULOCYTES 0.3 % (0-5); LYMPHOCYTES 12.1 % (15-50); MCH 26.9 pg (26.0-34.0); MCV 84.2 fL (80.0-100.0); MEAN PLATELET VOLUME 10.5 fL (7.4-10.4); MONOCYTES 9.8 % (2-11); NEUTROPHILS 76.4 % (40-80); PLATELET COUNT 147 10x3/uL (130-400); RBC 3.49 10x6/uL (4.00-5.40); RDW 16.4 % (11.5-14.5); WBC 9.9 10x3/uL (4.8-10.8)
[2017-10-18 05:41] LABS: ALBUMIN 2.2 g/dL (3.4-5.0); ALKALINE PHOSPHATASE 63 U/L (46-116); ALT (SGPT) 21 U/L (10-68); CALC OSMOLALITY 283 mosm/kg (275-300); CALCIUM 7.7 mg/dL (8.5-10.1); CARBON DIOXIDE 27.2 mmol/L (21.0-32.0); CHLORIDE - SERUM 109 mmol/L (98-107); CREATININE - SERUM 0.7 mg/dL (0.6-1.3); GLUCOSE 136 mg/dL (74-106); MAGNESIUM - SERUM 1.8 mg/dL (1.8-2.4); PHOSPHOROUS 2.3 mg/dL (2.5-4.9); POTASSIUM - SERUM 3.4 mmol/L (3.5-5.1); PROTEIN - SERUM 6.1 g/dL (6.4-8.2); SODIUM 142 mmol/L (136-145); UREA NITROGEN 10 mg/dL (7-18); eGFR NON AFRICAN AMERICAN 86 mL/min (90-120)
[2017-10-19] VITALS (71 sets, daily range): BP systolic 96–140; BP diastolic 30–89
[2017-10-19 04:59] LABS: BASOPHILS 0.1 % (0-2); HEMATOCRIT 27.9 % (36.0-48.0); HEMOGLOBIN 8.9 g/dL (12-16); IMMATURE GRANULOCYTES 0.1 % (0-5); LYMPHOCYTES 13.2 % (15-50); MCH 27.2 pg (26.0-34.0); MCHC 31.9 g/dL (31.0-37.0); MCV 85.3 fL (80.0-100.0); MEAN PLATELET VOLUME 10.4 fL (7.4-10.4); MONOCYTES 9.7 % (2-11); NEUTROPHILS 74.9 % (40-80); PLATELET COUNT 170 10x3/uL (130-400); RBC 3.27 10x6/uL (4.00-5.40); RDW 16.2 % (11.5-14.5); WBC 8.2 10x3/uL (4.8-10.8)
[2017-10-19 05:19] LABS: CALC OSMOLALITY 285 mosm/kg (275-300); CARBON DIOXIDE 27.9 mmol/L (21.0-32.0); CHLORIDE - SERUM 110 mmol/L (98-107); CREATININE - SERUM 0.6 mg/dL (0.6-1.3); GLUCOSE 150 mg/dL (74-106); MAGNESIUM - SERUM 1.9 mg/dL (1.8-2.4); POTASSIUM - SERUM 3.6 mmol/L (3.5-5.1); SODIUM 143 mmol/L (136-145); UREA NITROGEN 8 mg/dL (7-18); eGFR NON AFRICAN AMERICAN > 90 mL/min (90-120)
[2017-10-19 05:20] LABS: PHOSPHOROUS 2.9 mg/dL (2.5-4.9)
[2017-10-19 20:00] LABS: NEUT - BF 96 %
[2017-10-20] VITALS (29 sets, daily range): BP systolic 97–126; BP diastolic 44–87
[2017-10-20 05:21] LABS: BASOPHILS 0.2 % (0-2); EOSINOPHILS 3.8 % (0-7); HEMATOCRIT 27.1 % (36.0-48.0); HEMOGLOBIN 8.5 g/dL (12-16); IMMATURE GRANULOCYTES 0.3 % (0-5); LYMPHOCYTES 11.2 % (15-50); MCH 27.1 pg (26.0-34.0); MCHC 31.4 g/dL (31.0-37.0); MCV 86.3 fL (80.0-100.0); MEAN PLATELET VOLUME 10.2 fL (7.4-10.4); NEUTROPHILS 72.5 % (40-80); PLATELET COUNT 189 10x3/uL (130-400); RBC 3.14 10x6/uL (4.00-5.40); RDW 16.6 % (11.5-14.5)
[2017-10-20 06:37] LABS: ALBUMIN 1.7 g/dL (3.4-5.0); ALKALINE PHOSPHATASE 87 U/L (46-116); ALT (SGPT) 25 U/L (10-68); BILIRUBIN - TOTAL 0.39 mg/dL (0.2-1.3); CALC OSMOLALITY 287 mosm/kg (275-300); CALCIUM 7.9 mg/dL (8.5-10.1); CARBON DIOXIDE 25.7 mmol/L (21.0-32.0); CHLORIDE - SERUM 108 mmol/L (98-107); CREATININE - SERUM 0.6 mg/dL (0.6-1.3); GLUCOSE 153 mg/dL (74-106); POTASSIUM - SERUM 3.7 mmol/L (3.5-5.1); PRO BNP 2208 pg/mL (0-450); SODIUM 143 mmol/L (136-145); eGFR NON AFRICAN AMERICAN > 90 mL/min (90-120)
[2017-10-20 06:38] LABS: UREA NITROGEN 13 mg/dL (7-18)
[2017-10-21] VITALS (24 sets, daily range): BP systolic 104–132; BP diastolic 52–92; Ht 165.1 cm; Wt 104.4 kg
[2017-10-21 03:56] LABS: BASOPHILS 0.5 % (0-2); EOSINOPHILS 2.9 % (0-7); HEMATOCRIT 27.8 % (36.0-48.0); HEMOGLOBIN 8.8 g/dL (12-16); IMMATURE GRANULOCYTES 1.3 % (0-5); LYMPHOCYTES 13.4 % (15-50); MCH 27.1 pg (26.0-34.0); MCHC 31.7 g/dL (31.0-37.0); MCV 85.5 fL (80.0-100.0); MEAN PLATELET VOLUME 10.4 fL (7.4-10.4); MONOCYTES 11.7 % (2-11); NEUTROPHILS 70.2 % (40-80); RBC 3.25 10x6/uL (4.00-5.40); RDW 16.5 % (11.5-14.5)
[2017-10-21 03:58] LABS: PLATELET COUNT 227 10x3/uL (130-400); WBC 7.7 10x3/uL (4.8-10.8)
[2017-10-21 04:28] LABS: ALBUMIN 1.8 g/dL (3.4-5.0); ALKALINE PHOSPHATASE 109 U/L (46-116); BILIRUBIN - TOTAL 0.43 mg/dL (0.2-1.3); CALCIUM 8.4 mg/dL (8.5-10.1); CARBON DIOXIDE 26.6 mmol/L (21.0-32.0); CHLORIDE - SERUM 105 mmol/L (98-107); CREATININE - SERUM 0.7 mg/dL (0.6-1.3); GLUCOSE 150 mg/dL (74-106); PRO BNP 3651 pg/mL (0-450); PROTEIN - SERUM 6.5 g/dL (6.4-8.2); SODIUM 138 mmol/L (136-145); eGFR NON AFRICAN AMERICAN 86 mL/min (90-120)
[2017-10-21 04:31] LABS: ALT (SGPT) 38 U/L (10-68); CALC OSMOLALITY 280 mosm/kg (275-300); PHOSPHOROUS 4.6 mg/dL (2.5-4.9); UREA NITROGEN 18 mg/dL (7-18)
[2017-10-22] VITALS (24 sets, daily range): BP systolic 98–138; BP diastolic 42–97
[2017-10-22 04:36] LABS: BASOPHILS 0.5 % (0-2); EOSINOPHILS 2.9 % (0-7); HEMATOCRIT 26.7 % (36.0-48.0); HEMOGLOBIN 8.5 g/dL (12-16); IMMATURE GRANULOCYTES 3.2 % (0-5); LYMPHOCYTES 21.1 % (15-50); MCH 27.3 pg (26.0-34.0); MCHC 31.8 g/dL (31.0-37.0); MCV 85.9 fL (80.0-100.0); MEAN PLATELET VOLUME 10.6 fL (7.4-10.4); MONOCYTES 10.3 % (2-11); PLATELET COUNT 237 10x3/uL (130-400); RBC 3.11 10x6/uL (4.00-5.40); RDW 16.6 % (11.5-14.5); WBC 7.6 10x3/uL (4.8-10.8)
[2017-10-22 04:44] LABS: CALC OSMOLALITY 281 mosm/kg (275-300); CALCIUM 7.9 mg/dL (8.5-10.1); CARBON DIOXIDE 28.4 mmol/L (21.0-32.0); CHLORIDE - SERUM 105 mmol/L (98-107); CREATININE - SERUM 0.6 mg/dL (0.6-1.3); GLUCOSE 121 mg/dL (74-106); POTASSIUM - SERUM 3.9 mmol/L (3.5-5.1); SODIUM 140 mmol/L (136-145); UREA NITROGEN 19 mg/dL (7-18); eGFR NON AFRICAN AMERICAN > 90 mL/min (90-120)
[2017-10-22 16:23] LABS: AFB SPECIMEN PROCESSING Concentration (())
[2017-10-23] VITALS (24 sets, daily range): BP systolic 98–140; BP diastolic 51–84
[2017-10-23 04:29] LABS: BASOPHILS 0.4 % (0-2); EOSINOPHILS 3.1 % (0-7); HEMATOCRIT 23.8 % (36.0-48.0); HEMOGLOBIN 7.7 g/dL (12-16); LYMPHOCYTES 17.5 % (15-50); MCH 27.7 pg (26.0-34.0); MCHC 32.4 g/dL (31.0-37.0); MCV 85.6 fL (80.0-100.0); MEAN PLATELET VOLUME 10.3 fL (7.4-10.4); MONOCYTES 11.8 % (2-11); NEUTROPHILS 64.2 % (40-80); PLATELET COUNT 273 10x3/uL (130-400); RBC 2.78 10x6/uL (4.00-5.40); RDW 16.3 % (11.5-14.5)
[2017-10-23 04:37] LABS: CALC OSMOLALITY 289 mosm/kg (275-300); CARBON DIOXIDE 30.8 mmol/L (21.0-32.0); CHLORIDE - SERUM 104 mmol/L (98-107); CREATININE - SERUM 0.7 mg/dL (0.6-1.3); GLUCOSE 127 mg/dL (74-106); POTASSIUM - SERUM 3.4 mmol/L (3.5-5.1); SODIUM 143 mmol/L (136-145); UREA NITROGEN 21 mg/dL (7-18); eGFR NON AFRICAN AMERICAN 86 mL/min (90-120)
[2017-10-23 15:31] LABS: FUNGUS STAIN Final report (())
[2017-10-24] VITALS (23 sets, daily range): BP systolic 97–142; BP diastolic 38–96
[2017-10-24 05:15] LABS: BASOPHILS 0.3 % (0-2); EOSINOPHILS 2.9 % (0-7); HEMATOCRIT 26.8 % (36.0-48.0); HEMOGLOBIN 8.7 g/dL (12-16); IMMATURE GRANULOCYTES 2.6 % (0-5); LYMPHOCYTES 17.7 % (15-50); MCH 27.8 pg (26.0-34.0); MCHC 32.5 g/dL (31.0-37.0); MCV 85.6 fL (80.0-100.0); MEAN PLATELET VOLUME 10.5 fL (7.4-10.4); NEUTROPHILS 64.5 % (40-80); RBC 3.13 10x6/uL (4.00-5.40); RDW 16.5 % (11.5-14.5); WBC 7.7 10x3/uL (4.8-10.8)
[2017-10-24 05:22] LABS: PLATELET COUNT 332 10x3/uL (130-400)
[2017-10-24 05:25] LABS: CALC OSMOLALITY 283 mosm/kg (275-300); CALCIUM 7.8 mg/dL (8.5-10.1); CARBON DIOXIDE 32.5 mmol/L (21.0-32.0); CHLORIDE - SERUM 102 mmol/L (98-107); CREATININE - SERUM 0.7 mg/dL (0.6-1.3); GLUCOSE 143 mg/dL (74-106); POTASSIUM - SERUM 3.5 mmol/L (3.5-5.1); SODIUM 139 mmol/L (136-145); UREA NITROGEN 24 mg/dL (7-18); eGFR NON AFRICAN AMERICAN 86 mL/min (90-120)
[2017-10-25] VITALS (24 sets, daily range): BP systolic 102–132; BP diastolic 46–82
[2017-10-25 04:23] LABS: BASOPHILS 0.4 % (0-2); EOSINOPHILS 2.6 % (0-7); HEMATOCRIT 25.2 % (36.0-48.0); IMMATURE GRANULOCYTES 2.8 % (0-5); LYMPHOCYTES 24.7 % (15-50); MCH 26.5 pg (26.0-34.0); MCHC 30.6 g/dL (31.0-37.0); MCV 86.6 fL (80.0-100.0); MEAN PLATELET VOLUME 10.2 fL (7.4-10.4); NEUTROPHILS 59.5 % (40-80); PLATELET COUNT 339 10x3/uL (130-400); RBC 2.91 10x6/uL (4.00-5.40); RDW 16.4 % (11.5-14.5); WBC 6.9 10x3/uL (4.8-10.8)
[2017-10-25 04:25] LABS: HEMOGLOBIN 7.9 g/dL (12-16)
[2017-10-25 04:28] LABS: ANION GAP 6.7 mmol/L (8-16); CARBON DIOXIDE 34.8 mmol/L (21.0-32.0); CREATININE - SERUM 0.8 mg/dL (0.6-1.3); POTASSIUM - SERUM 3.5 mmol/L (3.5-5.1)
[2017-10-26] VITALS (18 sets, daily range): BP systolic 93–127; BP diastolic 51–74
[2017-10-27 04:30] VITALS: BP 121/68
[2017-10-27 09:13] VITALS: BP 133/69
[2017-10-27 09:26] VITALS: BP 133/69
[2017-10-27 14:32] VITALS: BP 119/55
[2017-10-27 17:00] VITALS: BP 131/67
[2017-10-27 20:25] VITALS: BP 106/55
[2017-10-28 00:44] VITALS: BP 130/66
[2017-10-28 05:02] VITALS: BP 107/546
[2017-10-28 08:33] VITALS: BP 114/60
[2017-10-28 12:06] VITALS: BP 124/79
[2017-10-28 15:47] VITALS: BP 125/64
[2017-10-28 20:56] VITALS: BP 119/58
[2017-10-29 08:24] VITALS: BP 140/70
[2017-10-29 11:21] LABS: AEROBE ID Final report (()); RESULT 1 Aerobic actinomycete (())
[2017-10-30 10:22] LABS: VIRAL - RESULT No virus isolated. (())
[2017-11-18 08:08] LABS: FUNGUS MYCOLOGY CULTURE Final report (())
[2017-12-13 11:21] LABS: ACID FAST CULTURE Negative (()); ACID FAST SMEAR Negative (())
== END 2017-10-29 09:40 | disposition home health service (06) | DRG 248 ==
LOC: D.ICU 14:48 → D.MS 15:22 → D.ICU 15:22 → D.MS 10-26 17:43
PROVIDERS: Internal Medicine Interventional Cardiology; Internal Medicine Pulmonary Disease
PROC: B2111ZZ Fluoroscopy of Multiple Coronary Arteries using Low Osmolar Contrast (ICD-10-PCS; 2017-10-15)
PROC: B2151ZZ Fluoroscopy of Left Heart using Low Osmolar Contrast (ICD-10-PCS; 2017-10-15)
PROC: 4A023N7 Measurement of Cardiac Sampling and Pressure, Left Heart, Percutaneous Approach (ICD-10-PCS; 2017-10-15)
PROC: 5A1955Z Respiratory Ventilation, Greater than 96 Consecutive Hours (ICD-10-PCS; 2017-10-15)
PROC: 0BH17EZ Insertion of Endotracheal Airway into Trachea, Via Natural or Artificial Opening (ICD-10-PCS; 2017-10-15)
PROC: 02703DZ Dilation of Coronary Artery, One Artery with Intraluminal Device, Percutaneous Approach (ICD-10-PCS; principal; 2017-10-15 16:30)
PROC: 05HY33Z Insertion of Infusion Device into Upper Vein, Percutaneous Approach (ICD-10-PCS; 2017-10-17)
PROC: 0B9J8ZX Drainage of Left Lower Lung Lobe, Via Natural or Artificial Opening Endoscopic, Diagnostic (ICD-10-PCS; 2017-10-19)
PROC: 0B9F8ZX Drainage of Right Lower Lung Lobe, Via Natural or Artificial Opening Endoscopic, Diagnostic (ICD-10-PCS; 2017-10-19)
DX: I21.09 ST elevation (STEMI) myocardial infarction involving other coronary artery of anterior wall (principal); R57.0 Cardiogenic shock; J96.01 Acute respiratory failure with hypoxia; I50.21 Acute systolic (congestive) heart failure; J18.9 Pneumonia, unspecified organism; J81.1 Chronic pulmonary edema; I11.0 Hypertensive heart disease with heart failure; I25.10 Atherosclerotic heart disease of native coronary artery without angina pectoris; I48.91 Unspecified atrial fibrillation; K21.9 Gastro-esophageal reflux disease without esophagitis; D72.829 Elevated white blood cell count, unspecified; E87.6 Hypokalemia; E88.09 Other disorders of plasma-protein metabolism, not elsewhere classified; E83.39 Other disorders of phosphorus metabolism; E83.42 Hypomagnesemia; I95.9 Hypotension, unspecified